=== PATIENT | male | born 1990 | race Caucasian/White ===

== ENCOUNTER 2017-05-18 20:44 | Emergency (ER) | payer OTHER ==
[2017-05-18 21:17] VITALS: BP 128/88
--- NOTE | 2017-05-18 21:26 | EDM.PDOC ---
ED HPI GENERAL MEDICAL PROBLEM - General Chief Complaint: Lower Extremity Injury/Pain Stated Complaint: RIGHT ANKLE INJURY Time Seen by Provider: 05/18/17 21:21 Source of Information: Reports: Patient History Limitations: Reports: No Limitations - History of Present Illness INITIAL COMMENTS - FREE TEXT/NARRATIVE: 19-year-old male presents the ED with an acute injury to his right ankle. 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 I.e. work related injury. He states he jumped to go away and inverted his right ankle tonight about 0730 hrs. He did not fall to the ground. Now increasing pain and swelling lateral ankle and difficulty ambulating. No previous surgery or injuries to the right ankle. Reports no other injuries occurred. Onset: Today Onset Date: 05/18/17 Onset Time: 07:30 Duration: Hour(s): Location: Reports: Lower Extremity, Right (Right lateral ankle) Quality: Reports: Ache Severity: Moderate Improves with: Reports: Rest Worsens with: Reports: Other (Weightbearing), Movement Context: Reports: Activity. 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 BUILDER: Reports: Other (see below) (None.) Right Ankle Pain Score (Numeric/FACES): 5 - Related Data Allergies Allergy/AdvReac Type Severity Reaction Status Date / Time almond Allergy Itching Verified 05/18/17 21:18 Penicillins Allergy Cannot Verified 05/18/17 21:18 Remember Past Medical History - Past Surgical History GI Surgical History: Reports: Hernia Repair/Other Social & Family History - Tobacco Use Years of Tobacco use: 10 - Caffeine Use Caffeine Use: Reports: None - Recreational Drug Use Recreational Drug Use: No - Living Situation & Occupation Living situation: Reports: Single Occupation: Employed Review of Systems - Review of Systems Review Of Systems: See Below Constitutional: Reports: No Symptoms Eyes: Reports: No Symptoms Ears: Reports: No Symptoms Nose: Reports: No Symptoms Mouth/Throat: Reports: No Symptoms Respiratory: Reports: No Symptoms Cardiovascular: Reports: No Symptoms GI/Abdominal: Reports: No Symptoms Genitourinary: Reports: No Symptoms Musculoskeletal: Reports: No Symptoms Skin: Reports: No Symptoms Neurological: Reports: No Symptoms Psychiatric: Reports: No Symptoms ED EXAM, GENERAL - Physical Exam Exam: See Below Exam Limited By: No Limitations General Appearance: Alert, WD/WN, No Apparent Distress Peripheral Pulses: 3+: Posterior Tibial (L), Posterior Tibial (R), Dorsalis Pedis (L), Dorsalis Pedis (R) Extremities: Other (Examination was limited to the right lower extremity. No pain on palpation of the proximal fibula. No pain on the in the ankle on compression of mid shaft tib-fib. No pain on compression of metatarsals and particularly the fifth metatarsal head. No pain or abdomen maladies detected on medial ligaments of the ankle. Left lateral ankle is markedly swollen and particularly the fibula oh talar ligament.) Neurological: Alert ( Pain at the tip of the lateral malleolus to palpation.), Oriented, CN II-XII Intact, Normal Cognition, Normal Gait Psychiatric: Normal Affect, Normal Mood Skin Exam: Warm, Dry, Intact, Normal Color, No Rash Course - Vital Signs Last Recorded V/S: Last Vital Signs Temp 37.0 C 05/18/17 21:15 Pulse 61 05/18/17 21:15 Resp 18 05/18/17 21:15 BP 128/88 05/18/17 21:15 Pulse Ox 99 05/18/17 21:15 - Orders/Labs/Meds Orders: Active Orders 24 hr Category Date Time Status Ankle Min 3V Rt [CR] Stat Exams 05/18/17 21:21 Taken - Radiology Interpretation Free Text/Narrative:: 19-year-old male presents the ED with an acute inversions injury to his right lateral ankle. This is a current in the workplace at 7:30 tonight. Examination reveals no problems with the medial ligaments. Plan x-ray of the left ankle to be obtained. - Re-Assessments/Exams Free Text/Narrative Re-Assessment/Exam: 05/18/17 21:44 x-rays of the left ankle are completed. They do not reveal any fractures or dislocations. He will be treated conservatively with Bravo wrap nonweightbearing crutch walking for the next 3-5 days. Elevate as much as possible ice pack to the area one half hour out of every 4 hours today and tomorrow. Aleve 2 tablets every 8 hours for pain relief. We'll also place him in an Aircast splint. Departure - Departure Time of Disposition: 21:45 Disposition: Home, Self-Care 01 Condition: Fair Clinical Impression: Inversion sprain of right ankle Qualifiers: Encounter type: initial encounter Qualified Code(s): S93.401A - Sprain of unspecified ligament of right ankle, initial encounter - Discharge Information Instructions: Ankle Sprain, [id number] Referrals: PCP,Not In Area [Primary Care Provider] - Forms: ED Department Discharge Additional Instructions: Evaluation in the emergency department tonight in regards to acute injury to the right lateral ankle while working tonight. Examination reveals marked swelling of the lateral ankle compatible with significant sprain. Excessive ankle were obtained and did not reveal any bony injuries. Therefore the ligaments have been stretched and partially torn causing swelling. Treatment is to get off of the foot as much as possible for the next 48 hours. Be nonweightbearing crutch walking. Bravo wrap on during the day and off at night although it could stay on all night tonight. Ice pack to the area for one half out of the next every 4 hours for the next 2 days. Suggest Aleve 2 tablets every 8 hours to relieve pain and inflammation. Crutch walking usually 3-5 days until you're able to weight-bear with minimal amount of pain. After this require well laced up shoe or boot to protect area as the ligaments are very weak for the next 2-3 months until it can completely heal. Resume regular activities as able. Return to medical care if not completely back to normal in 14 days time. - My Orders Last 24 Hours: My Active Orders 05/18/17 21:21 Ankle Min 3V Rt [CR] Stat - Assessment/Plan Last 24 Hours: My Active Orders 05/18/17 21:21 Ankle Min 3V Rt [CR] Stat
--- NOTE | 2017-05-20 17:55 | CR ---
Right ankle: Four views of the right ankle were obtained. Comparison: No previous study. Ankle mortise is symmetric. No fracture, dislocation or other bony abnormality is seen. Impression: 1. No abnormality is identified on right ankle exam. Diagnostic code #1
== END 2017-05-18 22:06 | disposition home or self-care (01) ==
LOC: JD.ED 20:44
DX: S93.401A Sprain of unspecified ligament of right ankle, initial encounter (principal); Z98.890 Other specified postprocedural states; Z88.0 Allergy status to penicillin; X50.1XXA Overexertion from prolonged static or awkward postures, initial encounter; Y92.69 Other specified industrial and construction area as the place of occurrence of the external cause; Y99.0 Civilian activity done for income or pay
CPT/HCPCS: 73610-26-RT; 73610-RT; 99282; 99283

== ENCOUNTER 2020-03-19 17:01 | Emergency (ER) | payer OTHER ==
[2020-03-19 17:15] VITALS: BP 153/93; PULSE 65
--- NOTE | 2020-03-19 17:39 | EDM.PDOC ---
ED HPI GENERAL MEDICAL PROBLEM - General Chief Complaint: General Stated Complaint: NEEDS COVID TEST NO SYMPTOMS Time Seen by Provider: 03/19/20 17:09 Source of Information: Reports: Patient History Limitations: Reports: No Limitations - History of Present Illness INITIAL COMMENTS - FREE TEXT/NARRATIVE: The patient presents with COVID 19 exposure. He was at a seminar last weekend and he got a call today that one of the people there tested positive. 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 He has a mild cough but that is not unusual for him. He has no shortness of breath , fever, congestion, runny nose, chest pain, abdominal pain, nausea or vomiting. He has no health problems. He does smoke at times. Onset: Gradual Duration: Week(s): Improves with: Reports: None Worsens with: Reports: None Associated Symptoms: Reports: Cough. Denies: Chest Pain, Fever/Chills, Headaches, Nausea/Vomiting, Shortness of Breath - Related Data Allergies Allergy/AdvReac Type Severity Reaction Status Date / Time almond Allergy Itching Verified 03/19/20 17:15 Penicillins Allergy Hives Verified 03/19/20 17:15 Past Medical History - Past Surgical History GI Surgical History: Reports: Hernia Repair/Other Social & Family History - Caffeine Use Caffeine Use: Reports: None - Living Situation & Occupation Living situation: Reports: Single Occupation: Employed ED ROS GENERAL - Review of Systems Review Of Systems: See Below Constitutional: Reports: No Symptoms HEENT: Reports: No Symptoms Respiratory: Reports: Cough. Denies: Shortness of Breath Cardiovascular: Reports: No Symptoms Endocrine: Reports: No Symptoms GI/Abdominal: Reports: No Symptoms : Reports: No Symptoms Musculoskeletal: Reports: No Symptoms ED EXAM, GENERAL - Physical Exam Exam: See Below Exam Limited By: No Limitations General Appearance: Alert, No Apparent Distress Ears: Normal External Exam Nose: Normal Inspection Head: Atraumatic, Normocephalic Neck: Normal Inspection Respiratory/Chest: No Respiratory Distress, Lungs Clear, Normal Breath Sounds Cardiovascular: Regular Rate, Rhythm, No Edema, No Murmur GI/Abdominal: Soft, Non-Tender, No Organomegaly, No Mass Back Exam: Normal Inspection Extremities: Normal Inspection Course - Vital Signs Last Recorded V/S: Last Vital Signs Temp 98.7 F 03/19/20 17:12 Pulse 65 03/19/20 17:12 Resp 16 03/19/20 17:12 BP 153/93 H 03/19/20 17:12 Pulse Ox 98 03/19/20 17:12 - Orders/Labs/Meds Labs: Laboratory Tests 03/19/20 Range/Units 18:42 SARS-CoV-2 RNA (RT-PCR) Negative (NEGATIVE) - Re-Assessments/Exams Free Text/Narrative Re-Assessment/Exam: 03/19/20 17:39 There is a change he may have exposed multiple people today. I have ordered the rapid COVID 19 test we do in our hospital. 03/19/20 19:31 The test was negative. I will discharge him home. Departure - Departure Time of Disposition: 19:35 Disposition: Home, Self-Care 01 Condition: Good Clinical Impression: COVID-19 virus not detected - Discharge Information *PRESCRIPTION DRUG MONITORING PROGRAM REVIEWED*: Not Applicable *COPY OF PRESCRIPTION DRUG MONITORING REPORT IN PATIENT LEWIS: Not Applicable Referrals: PCP,None [Primary Care Provider] - Forms: ED Department Discharge Additional Instructions: The COVID 19 test was negative. Please return if you have any other symptoms. Sepsis Event Note - Evaluation Sepsis Screening Result: No Definite Risk - Focused Exam Vital Signs: Vital Signs Temp Pulse Resp BP Pulse Ox 03/19/20 17:12 98.7 F 65 16 153/93 H 98 Date Exam was Performed: 03/19/20 Time Exam was Performed: 19:31
== END 2020-03-19 19:40 | disposition home or self-care (01) ==
LOC: JD.ED 17:01
DX: R05 Cough (principal); Z20.828 Contact with and (suspected) exposure to other viral communicable diseases; Z88.0 Allergy status to penicillin; Z88.8 Allergy status to other drugs, medicaments and biological substances
CPT/HCPCS: 99282; 99283; U0002